=== PATIENT | male | born 1980 | race Two or more races ===

== ENCOUNTER 2018-09-22 13:15 | Inpatient (IN) | payer OTHER ==
[~2018-09-22] VITALS: Ht 188 cm; Wt 140.6 kg
[2018-09-25] MEDS ORDERED: OXYC1TAB9 PO (11:19)
== END 2018-09-25 11:47 | disposition home or self-care (01) | DRG 348 ==
LOC: SURH 13:15
PROVIDERS: ADMIT Colon & Rectal Surgery
PROC: 0D9QXZZ Drainage of Anus, External Approach (ICD-10-PCS; principal; 2018-09-22)
DX: K61.2 Anorectal abscess (principal); L03.315 Cellulitis of perineum; L03.317 Cellulitis of buttock; B95.2 Enterococcus as the cause of diseases classified elsewhere; I10 Essential (primary) hypertension

== ENCOUNTER 2021-04-07 13:22 | Emergency (ER) | payer OTHER ==
[~2021-04-07] VITALS: Ht 182.9 cm; Wt 145.1 kg
[~2021-04-07 13:22] MED LIST: OXYC1TAB9 PO
[2021-04-07] MEDS ORDERED: PRILOSEC OTC20 MG (13:56)
[2021-04-07] MEDS ORDERED: DIOVAN40 MG PO (13:57)
== END 2021-04-08 11:38 | disposition home or self-care (01) ==
LOC: ER 13:22
DX: K62.89 Other specified diseases of anus and rectum (principal)

== ENCOUNTER 2021-10-21 05:58 | Day surgery (SDC) | payer OTHER ==
[~2021-10-21 05:58] MED LIST changes: +DIOVAN40 MG PO; +PRILOSEC OTC20 MG
== END 2021-10-21 12:50 | disposition home or self-care (01) ==
LOC: AMB-ENDOS 05:58
PROVIDERS: ATTEND Colon & Rectal Surgery
DX: K92.1 Melena (principal); K61.0 Anal abscess; K60.0 Acute anal fissure; Z20.822 Contact with and (suspected) exposure to COVID-19; K64.1 Second degree hemorrhoids